=== PATIENT | male | born 1970 | race American Indian/Alaskan Native ===

== ENCOUNTER 2017-03-23 09:22 | Emergency (ER) | payer SELFPAY ==
[2017-03-23 10:43] LABS: Basophils % (Auto) 0.1 % (0.0-1.8); Eosinophils # (Auto) 0.7 K/mm3 (0.0-0.4); Eosinophils % (Auto) 5.7 % (0.0-4.3); Hematocrit 42.9 % (35.5-45.6); Hemoglobin 14.1 gm/dl (11.8-15.2); Lymphocytes # (Auto) 1.5 K/mm3 (1.2-5.4); Lymphocytes % (Auto) 11.8 % (13.4-35.0); Mean Corpuscular HGB Conc 33 % (32-34); Mean Corpuscular Hemoglobin 29 pg (28-32); Mean Corpuscular Volume 89 fl (84-94); Monocytes # (Auto) 0.5 K/mm3 (0.0-0.8); Monocytes % (Auto) 4.1 % (0.0-7.3); Platelet Count 235 K/mm3 (140-440); Red Blood Count 4.83 M/mm3 (3.65-5.03); Red Cell Distribution Width 13.7 % (13.2-15.2)
[2017-03-23 10:46] LABS: BUN/Creatinine Ratio 20; Blood Urea Nitrogen 18 mg/dL (9-20); Calcium 8.6 mg/dL (8.4-10.2); Hemolysis Index 8
--- NOTE | 2017-03-23 11:40 | XRay Report ---
CHEST TWO VIEWS: 03/23/17 09:22:00 CLINICAL: Chest pain. COMPARISON: None FINDINGS: Normal heart and pulmonary vasculature. The lungs are normally expanded and clear.The bones and soft tissues are unremarkable. IMPRESSION: Normal chest.
--- NOTE | 2017-03-23 17:09 | Emergency Department Report ---
ED General Adult HPI - General Chief complaint: Extremity Problem,Nontraumatic Stated complaint: CHEST PAIN Time Seen by Provider: 03/23/17 16:30 Source: patient (Chest pain that started this morning, from side to side, sharp , severe, worse with deep breath, similar to a pain in lower extremities that started yesterday. He also c/o itchiness, generalized, for 2 days. His PCP asked him to D/C medications he started him on 4 days ago (Amoxicillin for sinusitis, Lisinopril for HTN). He has had coughing, sinus pressure, congestion for 2 weeks. ) Mode of arrival: Ambulatory Limitations: No Limitations - Related Data Previous Rx's Medication Instructions Recorded Last Taken Type Azithromycin [Zithromax Z-PRISCILLA] 250 mg PO DAILY #6 tablet 03/23/17 Unknown Rx Cyclobenzaprine [Flexeril] 10 mg PO BID PRN #8 tablet 03/23/17 Unknown Rx predniSONE [Deltasone] 50 mg PO QDAY #7 tab 03/23/17 Unknown Rx Allergies Allergy/AdvReac Type Severity Reaction Status Date / Time fish oil Allergy Unknown Verified 03/23/17 09:43 ED Review of Systems ROS: Stated complaint: CHEST PAIN Other details as noted in HPI Constitutional: denies: chills, fever Eyes: denies: eye pain, eye discharge, vision change ENT: denies: ear pain, throat pain Respiratory: cough. denies: shortness of breath, wheezing Cardiovascular: chest pain. denies: palpitations Endocrine: no symptoms reported Gastrointestinal: denies: abdominal pain, nausea, diarrhea Genitourinary: denies: urgency, dysuria Musculoskeletal: denies: back pain, joint swelling, arthralgia Skin: rash, pruritus. denies: lesions Neurological: denies: headache, weakness, paresthesias Psychiatric: denies: anxiety, depression Hematological/Lymphatic: denies: easy bleeding, easy bruising ED Past Medical Hx - Past Medical History Hx Hypertension: Yes Hx Diabetes: Yes - Surgical History Past Surgical History?: No - Social History Smoking Status: Never Smoker Substance Use Type: None - Medications Home Medications: Home Medications Medication Instructions Recorded Confirmed Last Taken Type Azithromycin [Zithromax Z-PRISCILLA] 250 mg PO DAILY #6 tablet 03/23/17 Unknown Rx Cyclobenzaprine [Flexeril] 10 mg PO BID PRN #8 tablet 03/23/17 Unknown Rx predniSONE [Deltasone] 50 mg PO QDAY #7 tab 03/23/17 Unknown Rx ED Physical Exam - General Limitations: No Limitations General appearance: alert, in no apparent distress - Head Head exam: Present: atraumatic, normocephalic - Eye Eye exam: Present: normal appearance - ENT ENT exam: Present: mucous membranes moist - Neck Neck exam: Present: normal inspection - Respiratory Respiratory exam: Present: normal lung sounds bilaterally. Absent: respiratory distress - Cardiovascular Cardiovascular Exam: Present: regular rate, normal rhythm. Absent: systolic murmur, diastolic murmur, rubs, gallop - GI/Abdominal GI/Abdominal exam: Present: soft, normal bowel sounds - Rectal Rectal exam: Present: deferred - Extremities Exam Extremities exam: Present: normal inspection - Back Exam Back exam: Present: normal inspection - Neurological Exam Neurological exam: Present: alert, oriented X3 - Psychiatric Psychiatric exam: Present: normal affect, normal mood - Skin Skin exam: Present: warm, dry, normal color, urticaria. Absent: rash ED Course Vital Signs 03/23/17 09:43 Temperature 98.8 F Pulse Rate 102 H Respiratory 17 Rate Blood Pressure 120/80 O2 Sat by Pulse 98 Oximetry ED Medical Decision Making - Lab Data Result diagrams: 03/23/17 10:15 03/23/17 10:15 Critical care attestation.: If time is entered above; I have spent that time in minutes in the direct care of this critically ill patient, excluding procedure time. ED Disposition Clinical Impression: Atypical chest pain, Itching, Muscle spasm of both lower legs Sinusitis Qualifiers: Sinusitis location: unspecified location Chronicity: subacute Qualified Code(s) : J01.90 - Acute sinusitis, unspecified Disposition: - TO HOME OR SELFCARE Is pt being admited?: No Does the pt Need Aspirin: No Condition: Stable Instructions: Chest Pain (ED), Itchy Skin (ED) Prescriptions: Azithromycin [Zithromax Z-PRISCILLA] 250 mg PO DAILY #6 tablet Cyclobenzaprine [Flexeril] 10 mg PO BID PRN #8 tablet PRN Reason: Muscle Spasm predniSONE [Deltasone] 50 mg PO QDAY #7 tab Referrals: PRIMARY CARE, [Primary Care Provider] - 3-5 Days
[2017-03-23 19:23] VITALS: BP 126/76
== END 2017-03-23 17:30 | disposition home or self-care (01) ==
LOC: ED 09:22
DX: R07.89 Other chest pain (principal); J32.9 Chronic sinusitis, unspecified; M62.838 Other muscle spasm; I10 Essential (primary) hypertension; E11.9 Type 2 diabetes mellitus without complications; Z91.013 Allergy to seafood
CPT/HCPCS: 36415; 71046; 80048; 85025; 99283